=== PATIENT | male | born 1980 | race Caucasian/White ===

== ENCOUNTER 2022-07-21 10:21 | Emergency (ER) | payer OTHER ==
[2022-07-21 11:18] LABS: HEMOGLOBIN 15.6 gm/dl (14.0-17.5); RED BLOOD COUNT 4.99 M/UL (4.20-5.50); WHITE BLOOD COUNT 12.2 K/UL (4.5-11.0)
[2022-07-21 11:46] LABS: BUN/CREATININE RATIO 12 (0-10)
[2022-07-21] MEDS ORDERED: TORADOL 10 MG T10 MG PO (13:54)
[2022-07-21] MEDS ORDERED: ZOFRAN ODT 4 MG4 MG SL (13:57)
== END 2022-07-21 14:10 | disposition home or self-care (01) ==
LOC: ER1 10:21
PROVIDERS: Physician Assistant
DX: N13.2 Hydronephrosis with renal and ureteral calculous obstruction (principal); F17.200 Nicotine dependence, unspecified, uncomplicated
CPT/HCPCS: 80053; 81001; 82550; 82553; 83690; 84484; 85025; 93005; 96374; 96375; 99284; J1885; J2405